=== PATIENT | male | born 1995 | race Caucasian/White ===

== ENCOUNTER 2022-06-09 08:26 | Emergency (ER) | payer OTHER, BC ==
[~2022-06-09] VITALS: Ht 170.2 cm; Wt 65.9 kg
[2022-06-09 08:34] VITALS: BP 113/90
[2022-06-09] MEDS ORDERED: naproxen 500mg tablet PO ONE (08:40)
== END 2022-06-09 12:14 ==
LOC: ER 08:27
DX: M54.2 Cervicalgia (principal); F17.200 Nicotine dependence, unspecified, uncomplicated; Z88.0 Allergy status to penicillin; V89.2XXA Person injured in unspecified motor-vehicle accident, traffic, initial encounter; Y93.89 Activity, other specified; Y92.89 Other specified places as the place of occurrence of the external cause; Y99.8 Other external cause status
CPT/HCPCS: 99283